=== PATIENT | female | born 1990 | race American Indian/Alaskan Native ===

== ENCOUNTER 2021-04-17 21:02 | Emergency (ER) | payer SELFPAY ==
[2021-04-17 21:06] VITALS: BP 173/70
[2021-04-17] MEDS ORDERED: ONDANSETRON 4 MG/2 ML INJ IV ONE ×2 (21:09→21:45)
[2021-04-17] MEDS ORDERED: SODIUM CHLORIDE 0.9% 1000 ML 1,000 ML IV ONE (21:09)
[2021-04-17 22:04] LABS: Basophils % (Auto) 0.2 % (0.0-1.8); Hematocrit 37.2 % (30.3-42.9); Hemoglobin 12.3 gm/dl (10.1-14.3); Lymphocytes # (Auto) 1.1 K/mm3 (1.2-5.4); Lymphocytes % (Auto) 10.5 % (13.4-35.0); Mean Corpuscular HGB Conc 33 % (30-34); Mean Corpuscular Volume 99 fl (79-97); Monocytes # (Auto) 0.5 K/mm3 (0.0-0.8); Monocytes % (Auto) 5.1 % (0.0-7.3); Platelet Count 301 K/mm3 (140-440); Red Blood Count 3.77 M/mm3 (3.65-5.03); Red Cell Distribution Width 13.3 % (13.2-15.2)
[2021-04-17 22:22] LABS: Alanine Aminotransferase 9 units/L (7-56); Albumin 4.5 g/dL (3.9-5); Blood Urea Nitrogen 12 mg/dL (7-17); Hemolysis Index 9
[2021-04-17 22:36] LABS: BUN/Creatinine Ratio 24
--- NOTE | 2021-04-17 22:48 | Emergency Department Report ---
ED General Adult HPI - General Chief complaint: Nausea/Vomiting/Diarrhea Stated complaint: NAUSEA VOMITING Time Seen by Provider: 04/17/21 21:44 Source: patient Mode of arrival: Ambulatory Limitations: No Limitations - History of Present Illness Initial comments: nause and vomiting 8 weeks IUP going for elective tomorrow, no bleeding no fever no chets pain no sob -: Gradual, days(s) Location: abdomen Severity scale (0 -10): 2 Quality: aching Consistency: intermittent Worsens with: none - Related Data Previous Rx's Medication Instructions Recorded Last Taken Type Ondansetron [Zofran Odt] 4 mg PO Q8HR #14 tab.rapdis 04/17/21 Unknown Rx Allergies Allergy/AdvReac Type Severity Reaction Status Date / Time No Known Allergies Allergy Unverified 04/17/21 21:05 ED Review of Systems ROS: Stated complaint: NAUSEA VOMITING Other details as noted in HPI Constitutional: denies: chills, fever Eyes: denies: eye pain, eye discharge, vision change ENT: denies: ear pain, throat pain Respiratory: denies: cough, shortness of breath, wheezing Cardiovascular: denies: chest pain, palpitations Endocrine: no symptoms reported Gastrointestinal: denies: abdominal pain, nausea, diarrhea Genitourinary: denies: urgency, dysuria, discharge Musculoskeletal: denies: back pain, joint swelling, arthralgia Skin: denies: rash, lesions Neurological: denies: headache, weakness, paresthesias Psychiatric: denies: anxiety, depression Hematological/Lymphatic: denies: easy bleeding, easy bruising ED Past Medical Hx - Past Medical History Previous Medical History?: No - Surgical History Past Surgical History?: No - Medications Home Medications: Home Medications Medication Instructions Recorded Confirmed Last Taken Type Ondansetron [Zofran Odt] 4 mg PO Q8HR #14 tab.rapdis 04/17/21 Unknown Rx ED Physical Exam - General Limitations: No Limitations General appearance: alert, in no apparent distress - Head Head exam: Present: atraumatic, normocephalic - Eye Eye exam: Present: normal appearance - ENT ENT exam: Present: mucous membranes moist - Neck Neck exam: Present: normal inspection - Respiratory Respiratory exam: Present: normal lung sounds bilaterally. Absent: respiratory distress - Cardiovascular Cardiovascular Exam: Present: regular rate, normal rhythm. Absent: systolic murmur, diastolic murmur, rubs, gallop - GI/Abdominal GI/Abdominal exam: Present: soft, normal bowel sounds - Extremities Exam Extremities exam: Present: normal inspection - Back Exam Back exam: Present: normal inspection - Neurological Exam Neurological exam: Present: alert, oriented X3 - Psychiatric Psychiatric exam: Present: normal affect, normal mood - Skin Skin exam: Present: warm, dry, intact, normal color. Absent: rash ED Course Vital Signs 04/17/21 21:04 Temperature 98.2 F Pulse Rate 96 H Respiratory 20 Rate Blood Pressure 173/70 O2 Sat by Pulse 99 Oximetry - Reevaluation(s) Reevaluation #1: 04/17/21 22:47 no gap, non ketotic , vss no distress, vss ED Medical Decision Making - Lab Data Result diagrams: 04/17/21 21:49 04/17/21 21:49 Critical care attestation.: If time is entered above; I have spent that time in minutes in the direct care of this critically ill patient, excluding procedure time. ED Disposition Clinical Impression: Nausea/vomiting in Disposition: 01 HOME / SELF CARE / HOMELESS Is pt being admited?: No Does the pt Need Aspirin: No Condition: Stable Instructions: Nausea and Vomiting, Adult, [id number]
== END 2021-04-18 00:29 | disposition home or self-care (01) ==
LOC: ED 21:02
DX: O21.9 Vomiting of pregnancy, unspecified (principal); Z3A.01 Less than 8 weeks gestation of pregnancy
CPT/HCPCS: 36415; 80053; 82150; 83690; 85025; 96361; 96374; 96376; 99283; J2405; J7030; Q0162

== ENCOUNTER 2021-04-22 09:17 | Emergency (ER) | payer SELFPAY ==
[2021-04-22] MEDS ORDERED: METOCLOPRAMIDE 10 MG/2 ML INJ IV ONE (10:49)
[2021-04-22] MEDS ORDERED: diphenhydrAMINE 50 MG/ML VIAL IV ONE (10:49)
[2021-04-22] MEDS ORDERED: SODIUM CHLORIDE 0.9% 1000 ML 1,000 ML IV ONE (10:49)
[2021-04-22] MEDS ORDERED: PANTOPRAZOLE 40 MG INJ IV ONE (10:50)
--- NOTE | 2021-04-22 10:55 | Emergency Department Report ---
ED General Adult HPI - General Chief complaint: Nausea/Vomiting/Diarrhea Stated complaint: VOMITING Time Seen by Provider: 04/22/21 10:49 Source: patient Mode of arrival: Ambulatory Limitations: No Limitations - History of Present Illness Initial comments: 31-year-old -Welsh female patient presents with complaints of nausea and vomiting x5 days. Patient states she had a surgical at an clinic 5 days ago and has since been vomiting. She states she was seen here for nausea and vomiting Tuesday last week and was given Zofran. Patient states Zofran is not helping. She denies any hematemesis/coffee-ground emesis, abdominal pain, melena/hematochezia, fever/chills/sweats, vaginal bleeding, or dysuria/hematuria/urinary frequency. She states she has a burning in her chest that worsens with vomiting. She denies any past medical history. Severity scale (0 -10): 9 - Related Data Previous Rx's Medication Instructions Recorded Last Taken Type Ondansetron [Zofran Odt] 4 mg PO Q8HR #14 tab.rapdis 04/17/21 Unknown Rx Famotidine [Pepcid] 20 mg PO BID 7 Days #14 tablet 04/22/21 Unknown Rx Metoclopramide [Reglan] 10 mg PO TID PRN #30 tab 04/22/21 Unknown Rx Potassium Chloride [K-Dur] 10 meq PO QDAY #5 tab 04/22/21 Unknown Rx diphenhydrAMINE [Benadryl CAP] 25 mg PO TID PRN #30 capsule 04/22/21 Unknown Rx Allergies Allergy/AdvReac Type Severity Reaction Status Date / Time No Known Allergies Allergy Verified 04/22/21 12:01 ED Review of Systems ROS: Stated complaint: VOMITING Other details as noted in HPI Constitutional: denies: chills, diaphoresis, fever, malaise, weakness Respiratory: denies: cough, shortness of breath Cardiovascular: as per HPI. denies: palpitations, edema Gastrointestinal: nausea, vomiting. denies: abdominal pain, diarrhea, constipa tion, hematemesis, melena, hematochezia Genitourinary: as per HPI Skin: denies: change in color Neurological: denies: headache ED Past Medical Hx - Medications Home Medications: Home Medications Medication Instructions Recorded Confirmed Last Taken Type Ondansetron [Zofran Odt] 4 mg PO Q8HR #14 tab.rapdis 04/17/21 04/22/21 Unknown Rx Famotidine [Pepcid] 20 mg PO BID 7 Days #14 tablet 04/22/21 Unknown Rx Metoclopramide [Reglan] 10 mg PO TID PRN #30 tab 04/22/21 Unknown Rx Potassium Chloride [K-Dur] 10 meq PO QDAY #5 tab 04/22/21 Unknown Rx diphenhydrAMINE [Benadryl CAP] 25 mg PO TID PRN #30 capsule 04/22/21 Unknown Rx ED Physical Exam - General Limitations: No Limitations General appearance: alert, in no apparent distress - Head Head exam: Present: atraumatic, normocephalic - Eye Eye exam: Present: normal appearance. Absent: scleral icterus - Neck Neck exam: Present: normal inspection - Respiratory Respiratory exam: Present: normal lung sounds bilaterally. Absent: respiratory distress - Cardiovascular Cardiovascular Exam: Present: regular rate, normal rhythm - GI/Abdominal GI/Abdominal exam: Present: soft, normal bowel sounds. Absent: distended, tenderness, guarding, rebound, rigid - Back Exam Back exam: Present: normal inspection - Neurological Exam Neurological exam: Present: alert, oriented X3, normal gait - Psychiatric Psychiatric exam: Present: normal affect, normal mood - Skin Skin exam: Present: warm, dry, intact, normal color. Absent: rash ED Course Vital Signs 04/22/21 04/22/21 04/22/21 10:44 11:59 14:41 Temperature 98.1 F 97.6 F Pulse Rate 88 74 Respiratory 12 18 Rate Blood Pressure 119/63 118/76 [Right] O2 Sat by Pulse 98 98 100 Oximetry ED Medical Decision Making - Lab Data Result diagrams: 04/22/21 11:22 04/22/21 11:22 Lab Results 04/22/21 04/22/21 04/22/21 Range/Units 11: 11: 11:22 WBC 7.1 (4.5-11.0) K/mm3 RBC 4.12 (3.65-5.03) M/mm3 Hgb 12.9 (10.1-14.3) gm/dl Hct 39.5 (30.3-42.9) % MCV 96 (79-97) fl MCH 31 (28-32) pg MCHC 33 (30-34) % RDW 13.2 (13.2-15.2) % Plt Count 315 (140-440) K/mm3 Lymph % (Auto) 16.3 (13.4-35.0) % Hudspeth % (Auto) 9.1 H (0.0-7.3) % Eos % (Auto) 0.2 (0.0-4.3) % Baso % (Auto) 0.3 (0.0-1.8) % Lymph # (Auto) 1.2 (1.2-5.4) K/mm3 [place]ud[place]eth # (Auto) 0.6 (0.0-0.8) K/mm3 Eos # (Auto) 0.0 (0.0-0.4) K/mm3 Baso # (Auto) 0.0 (0.0-0.1) K/mm3 Seg Neutrophils % 74.1 H (40.0-70.0) % Seg Neutrophils # 5.2 (1.8-7.7) K/mm3 Sodium 138 (137-145) mmol/L Potassium 3.2 L (3.6-5.0) mmol/L Chloride 98.0 (98-107) mmol/L Carbon Dioxide 24 (22-30) mmol/L Anion Gap 19 mmol/L BUN 10 (7-17) mg/dL Creatinine 0.5 L (0.6-1.2) mg/dL Estimated GFR > 60 ml/min BUN/Creatinine Ratio 20 % Glucose 108 H (65-100) mg/dL Calcium 9.5 (8.4-10.2) mg/dL Total Bilirubin 1.20 (0.1-1.2) mg/dL AST 14 (5-40) units/L ALT 10 (7-56) units/L Alkaline Phosphatase 68 (35-129) units/L Total Protein 8.3 H (6.3-8.2) g/dL Albumin 4.7 (3.9-5) g/dL Albumin/Globulin Ratio 1.3 % HCG, Quant 96806 H (0-4) mIU/mL - Medical Decision Making 31-year-old -Welsh female patient presents with complaints of nausea and vomiting x5 days. Patient states she had a surgical at an clinic 5 days ago and has since been vomiting. She states she was seen here for nausea and vomiting Tuesday last week and was given Zofran. Patient states Zofran is not helping. She denies any hematemesis/coffee-ground emesis, abdominal pain, melena/hematochezia, fever/chills/sweats, vaginal bleeding, or dysuria/hematuria/urinary frequency. She states she has a burning in her chest that worsens with vomiting. She denies any past medical history. Beta-hCG still elevated around 63,000. No abdominal pain on exam. Nausea and vomiting controlled. Patient tolerating crackers p.o. without difficulty. Mild hypokalemia noted, patient given p.o. potassium and will discharge home with 5 days of potassium her vitals are within normal limits, she is well-appearing, she is stable for discharge home. She is to follow-up with [facility] [employer] [facility] in 3 to 5 days. Strict return precautions were discussed in detail patient verbalized understanding Critical care attestation.: If time is entered above; I have spent that time in minutes in the direct care of this critically ill patient, excluding procedure time. ED Disposition Clinical Impression: Nausea & vomiting, Hypokalemia, Gastritis Disposition: HOME / SELF CARE / HOMELESS Is pt being admited?: No Condition: Stable Instructions: Gastritis, Adult, [id number], Hypokalemia, Nausea and Vomiting, Adult, [id number] Prescriptions: diphenhydrAMINE [Benadryl CAP] 25 mg PO TID PRN #30 capsule PRN Reason: Nausea Potassium Chloride [K-Dur] 10 meq PO QDAY #5 tab Famotidine [Pepcid] 20 mg PO BID 7 Days #14 tablet Metoclopramide [Reglan] 10 mg PO TID PRN #30 tab PRN Reason: Nausea Referrals: PRIMARY CARE, [Primary Care Provider] - 3-5 Days [facility] [Provider Group] - 3-5 Days Forms: Work/School Release Form(ED)
[2021-04-22 11:58] LABS: Alanine Aminotransferase 10 units/L (7-56); Albumin 4.7 g/dL (3.9-5); Blood Urea Nitrogen 10 mg/dL (7-17); Calcium 9.5 mg/dL (8.4-10.2); Hemolysis Index 5
[2021-04-22 12:00] LABS: BUN/Creatinine Ratio 20
[2021-04-22] MEDS ORDERED: POTASSIUM CHLORIDE ER 20 MEQ TAB PO ONE (12:01)
[2021-04-22 12:08] LABS: Basophils % (Auto) 0.3 % (0.0-1.8); Eosinophils % (Auto) 0.2 % (0.0-4.3); Hematocrit 39.5 % (30.3-42.9); Hemoglobin 12.9 gm/dl (10.1-14.3); Lymphocytes # (Auto) 1.2 K/mm3 (1.2-5.4); Lymphocytes % (Auto) 16.3 % (13.4-35.0); Mean Corpuscular HGB Conc 33 % (30-34); Mean Corpuscular Volume 96 fl (79-97); Monocytes # (Auto) 0.6 K/mm3 (0.0-0.8); Monocytes % (Auto) 9.1 % (0.0-7.3); Platelet Count 315 K/mm3 (140-440); Red Blood Count 4.12 M/mm3 (3.65-5.03); Red Cell Distribution Width 13.2 % (13.2-15.2)
[2021-04-22 14:42] VITALS: BP 118/76
== END 2021-04-22 14:42 | disposition home or self-care (01) ==
LOC: ED 09:17
DX: K29.70 Gastritis, unspecified, without bleeding (principal); E87.6 Hypokalemia; Z79.899 Other long term (current) drug therapy
CPT/HCPCS: 36415; 80053; 84702; 85025; 96361; 96374; 96375; 99283; C9113; J1200; J2765; J7030; Q0162

== ENCOUNTER 2021-04-27 17:19 | Emergency (ER) | payer SELFPAY ==
[2021-04-27 19:41] VITALS: BP 104/66
[2021-04-27] MEDS ORDERED: diphenhydrAMINE 50 MG/ML VIAL IV ONE (23:03)
[2021-04-27] MEDS ORDERED: METOCLOPRAMIDE 10 MG/2 ML INJ IV ONE (23:03)
[2021-04-27] MEDS ORDERED: FAMOTIDINE 20 MG/2 ML INJ IV ONE (23:03)
[2021-04-27] MEDS ORDERED: SODIUM CHLORIDE 0.9% 1000 ML 1,000 ML IV ONE (23:03)
[2021-04-27 23:59] LABS: Basophils % (Auto) 0.5 % (0.0-1.8); Eosinophils % (Auto) 0.5 % (0.0-4.3); Hematocrit 36.2 % (30.3-42.9); Hemoglobin 12.1 gm/dl (10.1-14.3); Lymphocytes # (Auto) 2.4 K/mm3 (1.2-5.4); Lymphocytes % (Auto) 28.9 % (13.4-35.0); Mean Corpuscular HGB Conc 34 % (30-34); Mean Corpuscular Volume 98 fl (79-97); Monocytes # (Auto) 0.5 K/mm3 (0.0-0.8); Monocytes % (Auto) 6.4 % (0.0-7.3); Platelet Count 306 K/mm3 (140-440); Red Blood Count 3.71 M/mm3 (3.65-5.03)
[2021-04-28 00:04] LABS: Alanine Aminotransferase 7 units/L (7-56); Albumin 4.2 g/dL (3.9-5); Blood Urea Nitrogen 7 mg/dL (7-17); Calcium 8.7 mg/dL (8.4-10.2); Hemolysis Index 3
[2021-04-28 00:14] LABS: BUN/Creatinine Ratio 14
[2021-04-28 01:48] LABS: Bilirubin,Urine NEG (Negative); Blood,Urine LG (Negative); Color,Urine Amber (Yellow); Mucus,Urine 3+ /HPF
[2021-04-28] MEDS ORDERED: PROCHLORPERAZINE EDISYLATE 10 MG/2 ML VIAL IV ONE (03:10)
[2021-04-28] MEDS ORDERED: SODIUM CHLORIDE 0.9% 1000 ML 1,000 ML IV ONE (03:10)
--- NOTE | 2021-04-28 03:46 | Ultrasound Report ---
ULTRASOUND OBSTETRIC INDICATION / CLINICAL INFORMATION: vaginal bleeding. ^PT STATES HAVING AN EAB ON 04/17/21. HCG WAS 63, 982 ON 04/22/21 AND 70,479 TODAY. ONLY A GS W/ YS IS SEEN ON TODAY'S EXAM. NO PREVIOUS COMPARISONS. - Clinical Gestational Age (GA) in weeks, days: 8, 6 TECHNIQUE: Transabdominal. COMPARISON: None available. FINDINGS: GESTATIONAL SAC: Slightly irregular gestational sac versus fluid collection with mean sac diameter of 5.0 cm. YOLK SAC: No normal yolk sac. EMBRYO/FETUS: No definite embryonic/ pole. ADNEXA: Right ovary appears within normal limits. Left ovary is not visualized. FREE FLUID: None. ADDITIONAL FINDINGS: None. IMPRESSION: 1. Slightly irregular fluid collection within the uterus with no normal yolk sac or definite embryoni c/ pole. Findings could potentially represent retained products of conception after elective abo rtion. Signer Name: Corin Devries MD Signed: 04/28/2021 3:41 AM Workstation Name: [id number]
--- NOTE | 2021-04-28 04:04 | Emergency Department Report ---
ED N/V/D HPI - General Chief complaint: Nausea/Vomiting/Diarrhea Stated complaint: VOMITING Source: patient Mode of arrival: Ambulatory Limitations: No Limitations - History of Present Illness Initial comments: Patient is a A3 31-year-old -Salvad[place] female who is 1 week status post elective presents to the ED with complaint of acute onset persistent intractable nausea and vomiting with suprapubic pain and vaginal bleeding. Patient states that the pain and vomiting have been persistent especially in the last 3 days and she suspects that her electrolytes may be low due to persistent intractable nausea and vomiting. Patient denies dizziness, syncope, chest pain, shortness of breath, cough, sore throat, headache, fever and chills, dysuria, urinary frequency and urgency, diarrhea or low back pain. MD complaint: nausea, vomiting, abdominal pain (Suprapubic pain) -: Sudden, week(s) (1) Description of Vomiting: food contents, watery, bilious Description of Diarrhea: other (No diarrhea) Associated Abdominal Pain: Yes (suprapubic) Radiation: none Severity: moderate Pain Scale: 6 Quality: cramping, sharp Consistency: constant Improves with: none Worsens with: movement Context: recent surgery/procedure (s/p elective >1 week ago) Associated Symptoms: denies other symptoms, nausea/vomiting. denies: myalgias, chest pain, cough, diaphoresis, fever/chills, headaches, loss of appetite, malaise, rash, dysuria, shortness of breath, syncope, weakness - Related Data Previous Rx's Medication Instructions Recorded Last Taken Type Ondansetron [Zofran Odt] 4 mg PO Q8HR #14 tab.rapdis 04/17/21 Unknown Rx Famotidine [Pepcid] 20 mg PO BID 7 Days #14 tablet 04/22/21 Unknown Rx Metoclopramide [Reglan] 10 mg PO TID PRN #30 tab 04/22/21 Unknown Rx Potassium Chloride [K-Dur] 10 meq PO QDAY #5 tab 04/22/21 Unknown Rx diphenhydrAMINE [Benadryl CAP] 25 mg PO TID PRN #30 capsule 04/22/21 Unknown Rx Famotidine [Pepcid] 20 mg PO BID #30 tablet 04/28/21 Unknown Rx Ibuprofen [Motrin] 800 mg PO Q8HR PRN #30 tablet 04/28/21 Unknown Rx Ondansetron [Zofran ODT TAB] 8 mg PO Q8HR PRN #20 tab.rapdis 04/28/21 Unknown Rx Promethazine [Phenergan] 25 mg ME Q6HR PRN #15 supp.rect 04/28/21 Unknown Rx Allergies Allergy/AdvReac Type Severity Reaction Status Date / Time Iodine and Iodide Containing Allergy Swelling Verified 04/27/21 19:41 Produc ED Review of Systems ROS: Stated complaint: VOMITING Other details as noted in HPI Constitutional: denies: chills, fever Eyes: denies: eye pain, eye discharge, vision change ENT: denies: ear pain, throat pain Respiratory: denies: cough, shortness of breath, wheezing Cardiovascular: denies: chest pain, palpitations Endocrine: no symptoms reported Gastrointestinal: abdominal pain (lower abdominal pain), nausea, vomiting. denies: diarrhea Genitourinary: denies: urgency, dysuria, discharge Musculoskeletal: denies: back pain, joint swelling, arthralgia Skin: denies: rash, lesions Neurological: denies: headache, weakness, paresthesias Psychiatric: denies: anxiety, depression Hematological/Lymphatic: denies: easy bleeding, easy bruising ED Past Medical Hx - Medications Home Medications: Home Medications Medication Instructions Recorded Confirmed Last Taken Type Ondansetron [Zofran Odt] 4 mg PO Q8HR #14 tab.rapdis 04/17/21 04/22/21 Unknown Rx Famotidine [Pepcid] 20 mg PO BID 7 Days #14 tablet 04/22/21 Unknown Rx Metoclopramide [Reglan] 10 mg PO TID PRN #30 tab 04/22/21 Unknown Rx Potassium Chloride [K-Dur] 10 meq PO QDAY #5 tab 04/22/21 Unknown Rx diphenhydrAMINE [Benadryl CAP] 25 mg PO TID PRN #30 capsule 04/22/21 Unknown Rx Famotidine [Pepcid] 20 mg PO BID #30 tablet 04/28/21 Unknown Rx Ibuprofen [Motrin] 800 mg PO Q8HR PRN #30 tablet 04/28/21 Unknown Rx Ondansetron [Zofran ODT TAB] 8 mg PO Q8HR PRN #20 tab.rapdis 04/28/21 Unknown Rx Promethazine [Phenergan] 25 mg ME Q6HR PRN #15 supp.rect 04/28/21 Unknown Rx ED Physical Exam - General Limitations: No Limitations General appearance: alert, in no apparent distress - Head Head exam: Present: atraumatic, normocephalic, normal inspection - Eye Eye exam: Present: normal appearance, PERRL, EOMI Pupils: Present: normal accommodation - ENT ENT exam: Present: normal exam, normal orophraynx, mucous membranes moist, TM's normal bilaterally, normal external ear exam - Neck Neck exam: Present: normal inspection, full ROM - Respiratory Respiratory exam: Present: normal lung sounds bilaterally. Absent: respiratory distress, wheezes, rales, rhonchi, stridor, chest wall tenderness, accessory muscle use, decreased breath sounds, prolonged expiratory - Cardiovascular Cardiovascular Exam: Present: regular rate, normal rhythm, normal heart sounds. Absent: systolic murmur, diastolic murmur, rubs, gallop - GI/Abdominal GI/Abdominal exam: Present: soft, tenderness (suprapubic), normal bowel sounds. Absent: guarding, rebound, hyperactive bowel sounds, hypoactive bowel sounds, organomegaly - Bi-manual exam: Present: other (Pelvic exam deferred at this time) - Extremities Exam Extremities exam: Present: normal inspection, full ROM, normal capillary refill - Back Exam Back exam: Present: normal inspection, full ROM. Absent: tenderness, CVA tenderness (L), muscle spasm, paraspinal tenderness, vertebral tenderness - Neurological Exam Neurological exam: Present: alert, oriented X3, CN II-XII intact, normal gait, reflexes normal - Psychiatric Psychiatric exam: Present: normal affect, normal mood - Skin Skin exam: Present: warm, dry, intact, normal color. Absent: rash ED Course Vital Signs 04/27/21 19:37 Temperature 98.3 F Pulse Rate 88 Respiratory 18 Rate Blood Pressure 104/66 [Right] O2 Sat by Pulse 100 Oximetry ED Medical Decision Making - Lab Data Result diagrams: 04/27/21 23:22 04/27/21 23:22 - Radiology Data Radiology results: report reviewed, image reviewed [facility] [address] [place] [address] Ultrasound Report Signed Patient: MILES COOK MR# : [id number] : 1990 Acct:[id number] Age/Sex: 31 / F ADM Date: 04/27/21 Loc: ED Attending Dr: Ordering Physician: MARINO HUANG Date of Service: 04/28/21 Procedure(s): US OB <= 14 weeks fetus Accession Number(s): [id number] cc: MARINO HUANG ULTRASOUND OBSTETRIC INDICATION / CLINICAL INFORMATION: vaginal bleeding. PT STATES HAVING AN EAB ON 04/17/21. HCG WAS 63,982 ON 04/22/21 AND 70,479 TODAY. ONLY A GS W/ YS IS SEEN ON TODAY'S EXAM. NO PREVIOUS COMPARISONS. - Clinical Gestational Age (GA) in weeks, days: 8, 6 TECHNIQUE: Transabdominal. COMPARISON: None available. FINDINGS: GESTATIONAL SAC: Slightly irregular gestational sac versus fluid collection with mean sac diameter of 5.0 cm. YOLK SAC: No normal yolk sac. EMBRYO/FETUS: No definite embryonic/ pole. ADNEXA: Right ovary appears within normal limits. Left ovary is not visualized. FREE FLUID: None. ADDITIONAL FINDINGS: None. IMPRESSION: 1. Slightly irregular fluid collection within the uterus with no normal yolk sac or definite embryonic/ pole. Findings could potentially represent retained products of conception after elective . Signer Name: Corin Devries MD Signed: 04/28/2021 3:41 AM Workstation Name: [id number] Transcribed By: DT Dictated By: Melvin Devries MD Electronically Authenticated By: Melvin Devries MD Signed Date/Time: 04/28/21 034 DD/ [id number] TD/TT: - Medical Decision Making This is a A3 31-year-old -[place] female who is 4 days s/p elective presents to the ED with complaint of acute onset persistent intractable nausea and vomiting with suprapubic pain and vaginal bleeding. Patient states that the pain and vomiting have been persistent especially in the last 3 days and she suspects that her electrolytes may be low due to persistent intractable nausea and vomiting. In the ED, patient is alert and oriented x3 and is not in any distress but tachycardic in triage. Patient was treated in the ED with nausea and vomiting, also given normal saline 1 L IV bolus x1. Patient was also treated with pain medication. Lab test results were reviewed and are all nonactionable except for mild hyponatremia 135 mmol/L and hypokalemia of 3.1 mmol/L. [place] [address] [place] [address] 6 days ago prior to the elective . The transvaginal ultrasound showed slightly irregular fluid collection within the uterus with no normal yolk sac or definite embryonic/ pole. Findings could potentially represent retained products of conception after elective . On reevaluation, patient's nausea and vomiting is well controlled medication. Patient was discharged home on antiemetics and pain medications. Patient was advised to maintain clear liquid diet for 12 to 24 hours, drinking plenty fluids and observe a complete pelvic rest with no heavy lifting or sexual activity. Patient is advised to return to the ED immediately if symptoms get worse. Patient was also advised to follow-up with her [facility] [employer] physician in 5 to 7 days for reevaluation. - Differential Diagnosis Complete ; dehydration; ovarian cyst; uterine fibroids; UTI Critical care attestation.: If time is entered above; I have spent that time in minutes in the direct care of this critically ill patient, excluding procedure time. ED Disposition Clinical Impression: Nausea and vomiting in adult patient, with electrolyte imbalance, Retained products of conception following Disposition: 01 HOME / SELF CARE / HOMELESS Is pt being admited?: No Does the pt Need Aspirin: No Condition: Stable Instructions: Nausea and Vomiting, Adult, [id number]-Luve, Managing Loss Additional Instructions: Lab test results were reviewed and are all nonactionable except for mild hyponatremia and mild hypokalemia. [place] [address] but the transvaginal ultrasound showed retained products of conception still in the uterine cavity which may be the reason why your hCG quant is still high. There is however no heart tones or sign of any live activity. Therefore maintain a complete pelvic rest, drink plenty of fluids, take medications for nausea and vomiting as well as medication for pain and follow-up with your [facility] [employer] physician in 5 to 7 days for reevaluation. Return to the ED immediately if symptoms get worse. Prescriptions: Ibuprofen [Motrin] 800 mg PO Q8HR PRN #30 tablet PRN Reason: Pain , Severe (7-10) Famotidine [Pepcid] 20 mg PO BID #30 tablet Promethazine [Phenergan] 25 mg ME Q6HR PRN #15 supp.rect PRN Reason: Nausea And Vomiting Ondansetron [Zofran ODT TAB] 8 mg PO Q8HR PRN #20 tab.rapdis PRN Reason: Nausea And Vomiting Referrals: TRISH MAYO MD [Staff Physician] - 3-5 Days Forms: Work/School Release Form(ED) Time of Disposition: 04:14 Print Language: BULGARIAN
[2021-04-28] MEDS ORDERED: POTASSIUM CHLORIDE ER 20 MEQ TAB PO ONE (04:18)
== END 2021-04-28 04:52 | disposition home or self-care (01) ==
LOC: ED 17:19
DX: R11.2 Nausea with vomiting, unspecified (principal); R10.30 Lower abdominal pain, unspecified; N93.9 Abnormal uterine and vaginal bleeding, unspecified; O03.33 Metabolic disorder following incomplete spontaneous abortion
CPT/HCPCS: 36415; 76801; 80053; 81001; 83690; 84702; 85025; 96361; 96374; 96375; 99284; J0780; J1200; J2765; J3490; J7030; Q0162